=== PATIENT | female | born 1985 | race Two or more races ===

== ENCOUNTER → 2025-01-05 | Outpatient (CLI) | payer MEDICAID, SELFPAY ==
--- NOTE | 2025-01-05 08:53 | XR_ITS ---
Examination: Transvaginal ultrasound of the pelvis, complete Technique: Transvaginal sonographic images pelvis performed using anton[employer] scale imaging Exam date and time: January 05, 2025 0904 hours INDICATIONS: Unsuccessful intrauterine device removal one month ago FINDINGS: Uterus 7.6 cm endometrial stripe 0.4 cm Intrauterine device satisfactory position Right ovary 2.5 cm arterial flow follicular cysts, the largest 15 mm Left ovary 3.2 cm arterial flow follicular cysts, the largest 12 mm IMPRESSION: Intrauterine device satisfactory position.
== END | disposition home or self-care (01) ==
PROVIDERS: PCP Physician Assistant; Referring Provider Physician Assistant; Visit Provider Physician Assistant
DX: Z30.431 Encounter for routine checking of intrauterine contraceptive device (principal)
CPT/HCPCS: 76830